=== PATIENT | female | born 1995 | race Caucasian/White ===

== ENCOUNTER → 2017-06-09 22:32 | Observation (INO) ==
[2017-06-09 19:02] LABS: Amphetamine Screen,Urine Negative ng/mL (Cutoff=1000); Barbiturate Screen,Urine Negative ng/mL (Cutoff=200); Benzodiazepines Screen,Urine Negative ng/mL (Cutoff=200); Cannabinoid Screen,Urine Negative ng/mL (Cutoff = 50); Cocaine Screen,Urine Negative ng/mL (Cutoff= 300); Opiate Screen,Urine Negative ng/mL (Cutoff=300); Phencyclidine Screen,Urine Negative ng/mL (Cutoff=25)
--- NOTE | 2017-06-09 22:23 | Discharge Summary ---
Date of Encounter: 06/09/17 Time of Encounter: 22:22 - Discharge Diagnosis (1) Uterine contractions during Priority: Primary Status: Acute Comments: Ms Blanco is here to rule out labor. She states she leaked a small amount of fluid this morning, but has not leaked any more since. She also states that she has been jam all day. She denies headache, vision changes, epigastric pain, current leaking of fluid, and vaginal bleeding. She is seen in the office by Dr Valladares. Nursing exam: Serial vaginal exams 4-5/80/ballottable with no change in 2 hours Reactive NST Discharge home with labor precautions. Follow up as scheduled and PRN. (2) 38 weeks gestation of Priority: Secondary Status: Acute (3) Non-stress test reactive Priority: Secondary Status: Acute Comments: FHTs 145 with moderate variability and 15 x 15 accels. Contractions every 2-3 minutes; patient denies pain with contractions. Fetus tolerating well. Category I tracing. - Discharge Medications Home Medications: Tablet 1 06/09/17 [History] Allergies/Adverse Reactions: 3 Allergy/AdvReac Type Severity Reaction Status Date / Time Penicillins AdvReac Hives Unverified 04/01/15 15:07 Data Procedures and tests throughout hospitalization: Laboratory Tests 06/09/17 18:45 Urine Opiates Screen Negative Ur Barbiturates Screen Negative Ur Phencyclidine Scrn Negative Ur Amphetamines Screen Negative U Benzodiazepines Scrn Negative Urine Cocaine Screen Negative U Marijuana (THC) Screen Negative Labs on day of discharge: Labs from last 24 hours 06/09/17 18:45 Urine Opiates Screen Negative Ur Barbiturates Screen Negative Ur Phencyclidine Scrn Negative Ur Amphetamines Screen Negative U Benzodiazepines Scrn Negative Urine Cocaine Screen Negative U Marijuana (THC) Screen Negative Date of admission: 06/09/17 18:18 Discharging clinician: Charisse Zamora Anticipated date of discharge: 06/09/17 - Patient Status Disposition: Home, Self-Care Condition: Good Functional capacity at discharge: independent ambulation Overall status at discharge: patient is back to baseline - Discharge Instructions Follow Up With: Alexis Valladares DO [Partnered Physician] - - Diet and Activity Activity: resume usual activities as tolerated Diet: regular diet Hospital Course DYNAMICS AX TECHNICAL ARCHITECT Time Attestation: Total time spent providing and/or coordinating discharge services: Exam - Constitutional General appearance IM: cooperative, A&O X 3 - VTE Reasons for not Prescribing Prophylaxis: Treatment not Indicated - Low risk for VTE
== END | disposition home or self-care (01) ==
LOC: 1NENULAB

== ENCOUNTER 2017-06-10 01:57 | Inpatient (IN) ==
[2017-06-10] MEDS ORDERED: *HR* Oxytocin 10 UNIT/ML VIAL IM ONE ×2 (02:05→05:24)
[2017-06-10] MEDS ORDERED: Naloxone 0.4 MG/ML INJ IVP PRN (02:18)
--- NOTE | 2017-06-10 02:32 | OB/GYN Procedure Note ---
Delivery - Delivery Date: 06/10/17 Provider: Charisse Zamora Intrapartum events: precipitous labor- <3hr Delivery induction: none Delivery monitor: none Anesthesia: none Estimated Blood Loss: 150 - Infant (s) A Delivery Date: 06/10/17 Delivery Time: 01:51 Presentation: vertex Position: OA Route of delivery: Gender: Male Viability: Viable Pounds: 7 Ounces: 10 Weight Gram: 3.47 kg at 1 minute: 8 at 5 mins: 9 Shoulder Dystocia: not encountered Specimens collected: cord blood Placenta: spontaneous Cord: 3 umbilical vessels - Repair Episiotomy: none Laceration Description: Periurethral (bilateral hemostatic) - Complications Delivery complications: none Delivery comments: Patient arrived to the ED via private vehicle after calling the answering service to let know that she was in active labor. Patient began pushing with each contraction in rney on the way to L&D. Patient arrived into labor and delivery and delivered a spontaneous viable, vigorous male in the direct OA position. No nuchal, no shoulder, no meconium encountered. placed onto maternal abdomen and cord double clamped and cut. Apgars 8 and 9 at 1 and 5 minutes of age. Placenta delivered spontaneously and appears grossly intact with 3 vessel cord. Upon inspection, there are bilateral hemostatic periurethral lacerations. Left to heal by second intention. Pericare instructions provided to patient. EBL 150. Mother and infant stable in recovery. Dr Reyes notified. - Disposition Mom disposition: stable in LDR [place] disposition: stable in LDR
--- NOTE | 2017-06-10 02:51 | OB/GYN History & Physical ---
Date of Encounter: 06/10/17 Time of Encounter: 02:47 Assessment and Plan (1) 38 weeks gestation of Current visit: No Status: Acute Admit for imminent delivery GBS negative (2) Active labor Current visit: Yes Status: Acute History of Present Illness Chief complaint: Active labor HPI: Ms. Blanco is a 21 year old at 38 weeks and 5 days gestation that presents to the emergency room in imminent labor. She was seen in triage earlier this evening for labor rule out and did not make cervical change in a 2 hour time frame; she was discharged home at that time with labor precautions. Labs: GBS negative Hep B nonreactive RPR negative Rubella nonimmune Varicella immune Gonorrhea negative Chlamydia negative Blood type O+ Past Med Surg Social Fam HX - Past Medical History Medical history: no medical history, other Psychiatric history: no psych history - Past Surgical History Surgical History: cholecystectomy, other - Social History Smoking Status: Never smoker Smokeless Tobacco Status: No Alcohol use: none Drug use: none - Family History Mother Living Status: Hx Family Cardiac Disorders: Yes (broken heart syndrome ( on table while having gallbladder surgery)) Hx Family Respiratory Disorders: No Hx Family Cancer: No Hx Family GI Disorders: No Hx Family Endocrine Disorder: No Hx Family Neuromuscular Disorders: No Hx Family Neurologic Disorders: No Hx Family HEENT Disorders: No Hx Family Autoimmune Disorders: No Obstetrical History - Pregnancies : 2 Para: 1 Term: 1 : 0 Ab's: 0 Livin Medications and Allergies Tablet 1 06/09/17 [History] 3 Allergy/AdvReac Type Severity Reaction Status Date / Time Penicillins AdvReac Hives Unverified 04/01/15 15:07 Review of System OB All systems PM: reviewed and no additional remarkable complaints except as stated Exam - Constitutional Constitutional: well developed, well nourished, average body habitus, moderate distress - HEENT HEENT: Normocephaly, Mucus Membranes Moist - Abdomen Abdomen: Present: bowel sounds normal, gravid, non tender - Extremities Extremities exam: normal capillary refill, normal inspection, pedal edema ( trace BLE), radial pulses palpable and symmetrical - Vulva Vulva: bilateral: normal - Vagina Vagina: Present: normal moisture - Cervix Dilation: 10 Effacement: 100 Station: +1 - Uterus Uterus exam: Present: normal size, normal contour. Absent: tender - Anus/Rectum Anus/Rectum: Present: normal perianal skin Results All other labs normal. - VTE Reasons for not Prescribing Prophylaxis: Treatment not Indicated - Low risk for VTE
[2017-06-10] MEDS: Ibuprofen 600 MG TABLET PO PRN ×4 (02:59→22:44)
[2017-06-10] MEDS ORDERED: Oxytocin 20 units/ LR 1000 mL 20 UNIT/1,000 ML BAG IVC SCH (05:24)
[2017-06-10] MEDS ORDERED: Measles/Mumps/Rubella Vacc 0.5 ML VIAL SQ PRN (05:24)
[2017-06-10] MEDS ORDERED: Sennosides 8.6 MG TABLET PO PRN (05:24)
[2017-06-10] MEDS ORDERED: Benzocaine/Menthol 56 GM AEROSOL SPRAY TP PRN (05:24)
[2017-06-10] MEDS ORDERED: Acetaminophen 325 MG TABLET PO PRN (05:24)
[2017-06-10] MEDS: Prenatal Vit/FA 1 EACH TABLET PO SCH (08:04)
[2017-06-11] MEDS: Ibuprofen 600 MG TABLET PO PRN (07:51)
[2017-06-11] MEDS: Prenatal Vit/FA 1 EACH TABLET PO SCH (07:52)
[2017-06-11 09:08] VITALS: BP 107/60
--- NOTE | 2017-06-11 09:17 | Discharge Summary ---
Date of Encounter: 06/11/17 Time of Encounter: 09:13 - Discharge Diagnosis (1) Vaginal delivery Priority: Primary Status: Acute Comments: S/P Vaginal Delivery Day 1 Pain is well controlled Lochia light and without clots VSS Tolerating regular diet; voiding and passing flatus without difficulty Discharge home today (2) 38 weeks gestation of Priority: Secondary Status: Resolved (3) Active labor Priority: Secondary Status: Resolved - Discharge Medications Prescriptions: Ibuprofen [Motrin] 600 mg PO Q6HR PRN #30 tablet PRN Reason: Cramping Breast Pump [BREAST PUMP] 1 each .ROUTE AD #1 each Docusate [Colace] 100 mg PO BID PRN #20 capsule PRN Reason: Constipation Ferrous Sulfate 325 mg PO DAILY #30 tablet Home Medications: Tablet 1 06/09/17 [History] Benzocaine/Menthol [place] [Dermoplast [place]] 1 appl TP QID PRN aerosol 06/11/17 [Rx] Breast Pump [BREAST PUMP] 1 each .ROUTE AD #1 each 06/11/17 [Rx] Docusate [Colace] 100 mg PO BID PRN #20 capsule 06/11/17 [Rx] Ferrous Sulfate 325 mg PO DAILY #30 tablet 06/11/17 [Rx] Hydrocortisone/Pramoxine [Epifoam] 0.5 gm TP TID foam 06/11/17 [Rx] Ibuprofen [Motrin] 600 mg PO Q6HR PRN #30 tablet 06/11/17 [Rx] Allergies/Adverse Reactions: 3 Allergy/AdvReac Type Severity Reaction Status Date / Time Penicillins AdvReac Intermediate Hives Verified 06/10/17 02:50 Date of admission: 06/10/17 01:57 Consults: 06/10/17 05:24 Consult to Felt Cutting Machine Operator [CONS] Routine Comment: Vaginal delivery, consult needed Discharging clinician: Charisse Zamora Anticipated date of discharge: 06/11/17 - Patient Status Disposition: Home, Self-Care Condition: Good Functional capacity at discharge: independent ambulation Overall status at discharge: patient is progressing back to baseline - Discharge Instructions Follow Up With: Alexis Valladares DO [Partnered Physician] - - Diet and Activity Activity: increase activity as tolerated Diet: regular diet Hospital Course Reason for admission: active labor, IUP at term Delivery: Episiotomy: none Laceration: other Other procedures: none complications: none Discharge diagnosis: IUP at term delivered baby: male Time Attestation: Total time spent providing and/or coordinating discharge services: Time Spent: Less than 30 minutes Exam - Constitutional Vitals: Temp Pulse Resp BP Pulse Ox 98.3 F 84 16 107/60 98 06/11/17 08:05 06/11/17 08:05 06/11/17 08:05 06/11/17 08:05 06/11/17 08:05 General appearance IM: cooperative, A&O X 3, pleasant - Respiratory Respiratory exam: Present: CTAB - Cardiovascular Cardiovascular exam IM: Present: RRR, +S1, +S2 - GI/Abdominal GI/Abdominal exam IM: normal bowel sounds, soft - Uterine Tone: Firm Uterus Position: At Umbilicus, Midline - Extremities Exam Extremities exam IM: Present: normal capillary refill, normal inspection, radial pulses palpable and symmetrical - Neurological Exam Neurological exam: alert, oriented X3
== END 2017-06-11 12:45 | disposition home or self-care (01) | DRG 775 ==
LOC: 1NENULAB 01:57 → 1NENUOBS 04:35